=== PATIENT | female | born 1965 | race Caucasian/White ===

== ENCOUNTER → 2018-10-31 | Outpatient (CLI) | payer BC, OTHER | LOC: CAT 09:11 | DX: G44.221 Chronic tension-type headache, intractable (principal) ==

== ENCOUNTER → 2020-09-27 | Outpatient (CLI) | payer OTHER | LOC: CAT 08:13 | PROVIDERS: ATTEND Family Medicine | DX: Z13.6 Encounter for screening for cardiovascular disorders (principal); E78.00 Pure hypercholesterolemia, unspecified; I25.10 Atherosclerotic heart disease of native coronary artery without angina pectoris ==